=== PATIENT | male | born 1995 | race Two or more races ===

== ENCOUNTER 2022-09-25 15:36 | Emergency (ER) | payer OTHER ==
[~2022-09-25] VITALS: Ht 177.8 cm; Wt 86.2 kg
[~2022-09-25 15:36] MED LIST: AMOX1TAB12 PO; AMOXICILLIN500 MG PO; IBUPROFEN800 MG PO
[2022-09-25] MEDS ORDERED: AMOX-CLAV 875-1 EACH PO (20:43)
== END 2022-09-25 21:55 | disposition home or self-care (01) ==
LOC: ER 15:36
DX: T78.49XA Other allergy, initial encounter (principal); X58.XXXA Exposure to other specified factors, initial encounter